=== PATIENT | male | born 1990 | race Caucasian/White ===

== ENCOUNTER 2016-12-10 14:58 | Emergency (ER) | payer OTHER ==
--- NOTE | 2016-12-10 15:54 | ERPHSYRPT ---
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 and thinks that could be the problem Triage Nursing Assessment: pt alert, anxious, having trouble concentrating, dizzy. skin w/d pink,no edema, resp easy Allergies/Adverse Reactions: No Known Drug Allergies Allergy (Verified 12/10/16 15:10) Home Medications: No Reportable Medications [No Reported Medications] 11/14/15 [History] Hx Tetanus, Diphtheria Vaccination/Date Given: No Hx Influenza Vaccination/Date Given: No Hx Pneumococcal Vaccination/Date Given: No Immunizations Up to Date: Yes - Past Medical History Pertinent Past Medical History: Yes Other Medical History: chronic back - Past Surgical History Past Surgical History: No - Social History Smoking Status: Current every day smoker Exposure to second hand smoke: Yes Drug Use: marijuana Patient Lives Alone: No - Nursing Vital Signs Nursing Vital Signs: Initial Vital Signs Temperature 98.3 F 12/10/16 15:01 Pulse Rate 95 H 12/10/16 15:01 Respiratory Rate 16 12/10/16 15:01 Blood Pressure 146/76 12/10/16 15:01 O2 Sat by Pulse Oximetry 99 12/10/16 15:01 Pain Scale Pain Intensity 6 - Physical Exam SpO2: 99 Oxygen Delivery: Room Air
[2016-12-10] MEDS ORDERED: Sodium Chloride 0.9% 1000 ML 1,000 ML IV STA (16:00)
--- NOTE | 2016-12-10 16:00 | ERPHSYRPT ---
- History of Present Illness Time Seen by Provider: 12/10/16 15:55 Historian: patient Exam Limitations: no limitations Patient Subjective Stated Complaint: pt here for chest pain to center of chest since 1100 today, with some sob, states he is under a lot of stress. and thinks that could be the problem Triage Nursing Assessment: pt alert, anxious, having trouble concentrating, dizzy. skin w/d pink,no edema, resp easy Physician History: The patient is a 26-year-old male who comes in complaining of chest pressure since 11 this morning or 5 hours ago. The last several days of been very stressful for the patient. He used to consume alcohol to excess but quit for the last 7 months. Then several days ago he started having marital difficulties and then started to drink again. He had a verbal argument with his and she has now from him. He is worried about losing custody of his child. He is very distraught but only comes to the ER to have the chest pressure checked. He has not had any alcohol today. He denies any suicidal ideation or plan. His past medical history is significant only for heavy alcohol consumption. Timing/Duration: today, hour(s) (5) Activities at Onset: emotional stress Quality: pressure Location: central Chest Pain Radiation: no radiation Severity of Pain-Max: moderate Severity of Pain-Current: moderate Modifying Factors: Improves With: nothing Associated Symptoms: denies symptoms Prior Chest Pain/Cardiac Workup: no prior chest pain Nitro Today/Relief: no nitro taken today Aspirin Treatment Today: no aspirin today Allergies/Adverse Reactions: No Known Drug Allergies Allergy (Verified 12/10/16 15:10) Home Medications: No Reportable Medications [No Reported Medications] 11/14/15 [History] Hx Tetanus, Diphtheria Vaccination/Date Given: No Hx Influenza Vaccination/Date Given: No Hx Pneumococcal Vaccination/Date Given: No Immunizations Up to Date: Yes - Review of Systems Constitutional: No Fever, No Chills Eyes: No Symptoms Ears, Nose, & Throat: No Symptoms Respiratory: No Cough, No Dyspnea Cardiac: Chest Pain Abdominal/Gastrointestinal: No Abdominal Pain, No Nausea, No Vomiting, No Diarrhea Genitourinary Symptoms: No Dysuria Musculoskeletal: No Back Pain, No Neck Pain Skin: No Rash Neurological: No Dizziness, No Focal Weakness, No Sensory Changes Psychological: No Symptoms Endocrine: No Symptoms Hematologic/Lymphatic: No Symptoms Immunological/Allergic: No Symptoms All Other Systems: Reviewed and Negative - Past Medical History Pertinent Past Medical History: Yes Other Medical History: chronic back - Past Surgical History Past Surgical History: No - Social History Smoking Status: Current every day smoker Exposure to second hand smoke: Yes Drug Use: marijuana Patient Lives Alone: No - Nursing Vital Signs Nursing Vital Signs: Initial Vital Signs Temperature 98.3 F 12/10/16 15:01 Pulse Rate 95 H 12/10/16 15:01 Respiratory Rate 16 12/10/16 15:01 Blood Pressure 146/76 12/10/16 15:01 O2 Sat by Pulse Oximetry 99 12/10/16 15:01 Pain Scale Pain Intensity 6 - Physical Exam General Appearance: mild distress Eye Exam: PERRL/EOMI, eyes nml inspection Ears, Nose, Throat Exam: normal ENT inspection, moist mucous membranes Neck Exam: normal inspection Respiratory Exam: normal breath sounds, lungs clear, No respiratory distress Cardiovascular Exam: regular rate/rhythm, normal heart sounds Gastrointestinal/Abdomen Exam: soft, No tenderness, No mass Rectal Exam: not done Back Exam: normal inspection Extremity Exam: normal inspection, normal range of motion Neurologic Exam: alert, oriented x 3, cooperative, sensation nml, depressed mood /affect, No motor deficits Skin Exam: normal color, warm, dry SpO2 Interpretation: normal SpO2: 99 Oxygen Delivery: Room Air - Course EKG Interpreted by Me: RATE, Sinus Rhythm, NORMAL AXIS, NORMAL INTERVALS, NORMAL QRS, NORMAL ST-T - Radiology Exams Chest X-ray Interpretation: Teleradiologist Report, Negative (per Dr Villatoro) Ordered Tests: Active Orders 24 hr Category Date Time Status 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 Care 12/10/16 16:00 Active EKG-ER Only STAT Care 12/10/16 16:00 Active IV Insertion STAT Care 12/10/16 16:00 Active CHEST 2 VIEWS (PA AND LAT) Stat Exams 12/10/16 16:00 Completed CBC W DIFF Stat Lab 12/10/16 15:05 Completed CMP Stat Lab 12/10/16 15:05 Completed TROPONIN Q3H Lab 12/10/16 15:05 Completed TROPONIN Q3H Lab 12/10/16 19:00 Ordered TROPONIN Q3H Lab 12/10/16 22:00 Ordered TROPONIN Q3H Lab 12/11/16 01:00 Ordered TROPONIN Q3H Lab 12/11/16 04:00 Ordered UA W/RFX UR CULTURE Stat Lab 12/10/16 16:30 Completed Urine Triage Profile Stat Lab 12/10/16 16:30 Completed Medication Summary Discontinued Medications Generic Name Dose Route Start Last Admin Trade Name Brian PRN Reason Stop Dose Admin Sodium Chloride 1,000 mls @ 999 mls/hr 12/10/16 16:00 12/10/16 16:23 Sodium Chloride 0.9% 1000 Ml IV 12/10/16 17:00 999 mls/hr .Q1H1M STA Administration Sodium Chloride Confirm 12/10/16 16:22 Sodium Chloride 0.9% 1000 Ml Administered 12/10/16 16:23 Dose 1,000 mls @ ud .ROUTE .STK-MED ONE Lab/Rad Data: Laboratory Result Diagrams 12/10/16 15:05 12/10/16 15:05 Laboratory Results 12/10/16 12/10/16 12/10/16 Range/Units 16:30 16:30 15:05 WBC (4.0-10.5) K/mm3 RBC (4.1-5.6) M/mm3 Hgb (12.5-18.0) gm/dl Hct (42-50) % MCV (78-100) fl MCH (26-32) pg MCHC (32-36) g/dl RDW (11.5-14.0) % Plt Count (150-450) K/mm3 MPV (6-9.5) fl Gran % (36.0-66.0) % Lymphocytes % (24.0-44.0) % Monocytes % (0.0-12.0) % Eosinophils % (0.00-5.0) % Basophils % (0.0-0.4) % Basophils # (0-0.4) Sodium 141 (136-145) mEq/L Potassium 4.3 (3.5-5.1) mEq/L Chloride 102 (98-107) mEq/L Carbon Dioxide 24.7 (21-32) mEq/L Anion Gap 18.1 H (5-15) MEQ/L BUN 11 (9-20) mg/dL Creatinine 1.27 (0.55-1.30) mg/dl Estimated GFR > 60 ML/MIN Glucose 90 (70-110) MG/DL Calcium 9.7 (8.5-10.1) mg/dL Total Bilirubin 1.00 (0.2-1.0) mg/dL AST 24 (15-37) U/L ALT 62 (12-78) U/L Alkaline Phosphatase 60 (46-116) U/L Troponin I (0.000-0.056) ng/ml Serum Total Protein 8.5 H (6.4-8.2) gm/dL Albumin 4.8 (3.4-5.0) g/dL Ur Collection Type CLEAN CATCH Urine Color YELLOW (YELLOW) Urine Appearance CLEAR (CLEAR) Urine pH 5.0 (5-6) Ur Specific [place] 1.020 (1.005-1.025) Urine Protein NEGATIVE (Negative) Urine Ketones MODERATE (NEGATIVE) Urine Blood NEGATIVE (0-5) Bello/ul Urine Nitrite NEGATIVE (NEGATIVE) Urine Bilirubin NEGATIVE (NEGATIVE) Urine Urobilinogen NORMAL (0-1) mg/dL Ur Leukocyte Esterase NEGATIVE (NEGATIVE) Urine Glucose NEGATIVE (NEGATIVE) mg/dL Urine Opiates Level NEG. (NEGATIVE) Ur Methadone NEG. (NEGATIVE) Urine Barbiturates NEG. (NEGATIVE) Ur Phencyclidine (PCP) NEG. (NEGATIVE) Urine Amphetamine POS. (NEGATIVE) U Benzodiazepine Level NEG. (NEGATIVE) Urine Cocaine NEG. (NEGATIVE) Urine Marijuana (THC) NEG. (NEGATIVE) Specimen Received 12/10/16 1630 12/10/16 12/10/16 Range/Units 15:05 15:05 WBC 10.4 (4.0-10.5) K/mm3 RBC 5.54 (4.1-5.6) M/mm3 Hgb 17.4 (12.5-18.0) gm/dl Hct 50.5 H (42-50) % MCV 91.2 (78-100) fl MCH 31.4 (26-32) pg MCHC 34.5 (32-36) g/dl RDW 13.3 (11.5-14.0) % Plt Count 252 (150-450) K/mm3 MPV 10.8 H (6-9.5) fl Gran % 66.3 H (36.0-66.0) % Lymphocytes % 23.8 L (24.0-44.0) % Monocytes % 7.5 (0.0-12.0) % Eosinophils % 2.2 (0.00-5.0) % Basophils % 0.2 (0.0-0.4) % Basophils # 0.02 (0-0.4) Sodium (136-145) mEq/L Potassium (3.5-5.1) mEq/L Chloride (98-107) mEq/L Carbon Dioxide (21-32) mEq/L Anion Gap (5-15) MEQ/L BUN (9-20) mg/dL Creatinine (0.55-1.30) mg/dl Estimated GFR ML/MIN Glucose (70-110) MG/DL Calcium (8.5-10.1) mg/dL Total Bilirubin (0.2-1.0) mg/dL AST (15-37) U/L ALT (12-78) U/L Alkaline Phosphatase (46-116) U/L Troponin I < 0.017 (0.000-0.056) ng/ml Serum Total Protein (6.4-8.2) gm/dL Albumin (3.4-5.0) g/dL Ur Collection Type Urine Color (YELLOW) Urine Appearance (CLEAR) Urine pH (5-6) Ur Specific [place] (1.005-1.025) Urine Protein (Negative) Urine Ketones (NEGATIVE) Urine Blood (0-5) Bello/ul Urine Nitrite (NEGATIVE) Urine Bilirubin (NEGATIVE) Urine Urobilinogen (0-1) mg/dL Ur Leukocyte Esterase (NEGATIVE) Urine Glucose (NEGATIVE) mg/dL Urine Opiates Level (NEGATIVE) Ur Methadone (NEGATIVE) Urine Barbiturates (NEGATIVE) Ur Phencyclidine (PCP) (NEGATIVE) Urine Amphetamine (NEGATIVE) U Benzodiazepine Level (NEGATIVE) Urine Cocaine (NEGATIVE) Urine Marijuana (THC) (NEGATIVE) Specimen Received - Progress Progress: improved Air Movement: good Blood Culture(s) Obtained: No Antibiotics given: No Counseled pt/family regarding: lab results, diagnosis, need for follow-up, rad results - Departure Time of Disposition: 17:16 Departure Disposition: Home Clinical Impression: Chest pain due to psychological stress, Amphetamine use disorder, mild Condition: Stable Critical Care Time: No Additional Instructions: Your chest pain is due to emotional stress. You also tested positive for amphetamine use. Refrain from alcohol and drug use. Follow-up as needed.
[2016-12-10 16:16] LABS: BASOPHIL % 0.2 % (0.0-0.4); Eosinophil % 2.2 % (0.00-5.0); Granulocytes % 66.3 % (36.0-66.0); Lymphocytes % 23.8 % (24.0-44.0); Mean Cell Volume 91.2 fl (78-100); Mean Corpuscular Hemoglobin 31.4 pg (26-32); Mean Platelet Volume 10.8 fl (6-9.5); Monocytes % 7.5 % (0.0-12.0); Platelet Count 252 K/mm3 (150-450); Red Blood Count 5.54 M/mm3 (4.1-5.6); Red Cell Distribution Width 13.3 % (11.5-14.0); White Blood Count 10.4 K/mm3 (4.0-10.5)
[2016-12-10] MEDS ORDERED: Sodium Chloride 0.9% 1000 ML 1,000 ML ONE (16:22)
[2016-12-10 16:40] LABS: Collection Type CLEAN CATCH; Glucose NEGATIVE (NEGATIVE); Leukocyte Esterase NEGATIVE (NEGATIVE)
[2016-12-10 16:41] LABS: ADD URINE CULTURE? NO (NO); Bilirubin NEGATIVE (NEGATIVE); Blood NEGATIVE Ery/ul (0-5); COMPLETE URINE MICROSCOPIC? NO
[2016-12-10 16:41] LABS: ALBUMIN 4.8 g/dL (3.4-5.0); ALKALINE PHOSPHATASE 60 U/L (46-116); ANION GAP 18.1 MEQ/L (5-15); BLOOD UREA NITROGEN 11 mg/dL (9-20); CHLORIDE 102 mEq/L (98-107); Carbon Dioxide 24.7 mEq/L (21-32); Glucose 90 MG/DL (70-110); Potassium 4.3 mEq/L (3.5-5.1); SGOT/AST 24 U/L (15-37); SGPT/ALT 62 U/L (12-78); SODIUM 141 mEq/L (136-145); Total Protein 8.5 gm/dL (6.4-8.2)
[2016-12-10 17:03] VITALS: BP 129/85; PULSE 79; O2SAT 99
--- NOTE | 2016-12-10 17:04 | XRAY ---
Indication: Chest pain. Comparison: None PA/lateral chest demonstrate normal heart, lungs, and bony thorax.
== END 2016-12-10 17:38 | disposition home or self-care (01) ==
LOC: ED 14:58
DX: R07.89 Other chest pain (principal); F43.9 Reaction to severe stress, unspecified; F15.90 Other stimulant use, unspecified, uncomplicated
CPT/HCPCS: 36000; 36415; 71020; 80053; 80307; 81002; 84484; 85025; 93005; 93041; 96360; 99284; 99285

== ENCOUNTER 2017-03-03 15:01 | Emergency (ER) | payer OTHER ==
[2017-03-03 15:24] VITALS: O2SAT 97
[2017-03-03] MEDS ORDERED: Norflex 60 MG/2 ML IM ONE (15:52)
[2017-03-03] MEDS ORDERED: TORAdol 30 mg Injection IM ONE (15:52)
--- NOTE | 2017-03-03 15:57 | ERPHSYRPT ---
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 pt able to ambulate without difficutly Physician History: States lifting large poles and putting them in ground states did not feel injury at time though woke this am with sharp pain to mid and lower back pt states pain constant. denies any numbness or tingling Timing/Duration: yesterday Method of Injury: bending, lifting Quality: pressure Back Pain Location: paraspinous muscles Severity of Pain-Max: moderate Severity of Pain-Current: moderate Modifying Factors: Improves With: nothing Associated Symptoms: denies symptoms Allergies/Adverse Reactions: No Known Drug Allergies Allergy (Verified 12/10/16 15:10) Hx Tetanus, Diphtheria Vaccination/Date Given: Yes Hx Influenza Vaccination/Date Given: No Hx Pneumococcal Vaccination/Date Given: No - Review of Systems Constitutional: No Symptoms Eyes: No Symptoms Ears, Nose, & Throat: No Symptoms Respiratory: No Symptoms Cardiac: No Symptoms Abdominal/Gastrointestinal: No Symptoms Genitourinary Symptoms: No Symptoms Musculoskeletal: Back Pain Skin: No Symptoms Neurological: No Symptoms Endocrine: No Symptoms - Past Medical History Pertinent Past Medical History: Yes Neurological History: No Pertinent History Other Medical History: chronic back buldging disk - Past Surgical History Past Surgical History: Yes Other Surgical History: jaw - Social History Smoking Status: Light tobacco smoker Exposure to second hand smoke: Yes Drug Use: marijuana Patient Lives Alone: No - Nursing Vital Signs Nursing Vital Signs: Initial Vital Signs Temperature 98.4 F 03/03/17 15:17 Pulse Rate 88 03/03/17 15:17 Respiratory Rate 18 03/03/17 15:17 Blood Pressure 142/78 03/03/17 15:17 O2 Sat by Pulse Oximetry 97 03/03/17 15:17 Pain Scale Pain Intensity [Lower Back] 8 Pain Intensity 8 - Physical Exam General Appearance: no apparent distress Eye Exam: PERRL/EOMI Ears, Nose, Throat Exam: normal ENT inspection Back Exam: decreased range of motion, muscle spasm, No normal range of motion, No CVA tenderness, No vertebral tenderness, No rash, No point tenderness Extremity Exam: normal inspection SpO2: 97 - Course Nursing assessment & vital signs reviewed: Yes - Progress Progress: improved, pain not gone completely Counseled pt/family regarding: diagnosis, need for follow-up - Departure Time of Disposition: 15:57 Departure Disposition: Home Clinical Impression: Paraspinal muscle spasm Condition: Stable Critical Care Time: No [facility] - Instructions: Low Back Pain, Muscle Strain Additional Instructions: BACK INJURY 1. May apply moist heat frequently for relief of pain. Take care not to burn the skin. Do not use heat for more than 30 minutes at a time. 2. Try to sleep on a firm bed, flat on your back. 3. If no improvement is noticed in 2-3 days, follow up with your family physician. 4. If you notice any numbness, tingling, weakness, or problems with your bowel or bladder, you should call your family physician or return to the emergency department. Please follow the instructions given to you. Please take your medication as prescribed if given. If symptoms recur or get worse, come back to the emergency room if you cannot reach your primary care physician, or call your primary care physician for an appointment. Again if your symptoms get worse, come back to the emergency room. Thanks for visiting emergency room, and let us take care of you. Prescriptions: Cyclobenzaprine HCl 10 mg [Flexeril 10 MG] 10 mg PO TID #30 tablet Naproxen 375 mg [Naprosyn 375 mg] 375 mg PO Q8H #30 tablet
[2017-03-03] MEDS ORDERED: TORAdol 30 mg Injection ONE (16:01)
[2017-03-03] MEDS ORDERED: Norflex 60 MG/2 ML ONE (16:01)
[2017-03-03 16:27] VITALS: BP 152/80; PULSE 94
== END 2017-03-03 16:30 | disposition home or self-care (01) ==
LOC: ED 15:01
DX: M62.830 Muscle spasm of back (principal); X50.0XXA Overexertion from strenuous movement or load, initial encounter
CPT/HCPCS: 96372; 99282; J1885; J2360